=== PATIENT | female | born 1960 | race Two or more races ===

== ENCOUNTER 2021-03-02 09:30 | Inpatient (IN) | payer OTHER ==
[~2021-03-02] VITALS: Ht 170.2 cm; Wt 152.9 kg
[2021-03-05] MEDS ORDERED: MEGESTROL ACETA40 MG (08:56)
[2021-03-05] MEDS ORDERED: CLONAZEPAM0.5 MG (08:56)
[2021-03-05] MEDS ORDERED: SERTRALINE HCL50 MG (08:57)
== END 2021-03-05 11:12 | disposition home or self-care (01) | DRG 743 ==
LOC: OB/GYN 03-04 06:28 → O/R 03-04 06:28 → SURH 03-04 09:30 → OB/GYN 03-04 11:28
PROVIDERS: ADMIT Obstetrics & Gynecology Gynecologic Oncology; ATTEND Obstetrics & Gynecology Gynecologic Oncology
PROC: 0UT24ZZ Resection of Bilateral Ovaries, Percutaneous Endoscopic Approach (ICD-10-PCS; 2021-03-04)
PROC: 0UT74ZZ Resection of Bilateral Fallopian Tubes, Percutaneous Endoscopic Approach (ICD-10-PCS; 2021-03-04)
PROC: 07BC4ZZ Excision of Pelvis Lymphatic, Percutaneous Endoscopic Approach (ICD-10-PCS; 2021-03-04)
PROC: 0UT94ZZ Resection of Uterus, Percutaneous Endoscopic Approach (ICD-10-PCS; principal; 2021-03-04 10:00)
DX: N80.0 Endometriosis of uterus (principal); N72 Inflammatory disease of cervix uteri; D25.1 Intramural leiomyoma of uterus; N83.312 Acquired atrophy of left ovary; N83.8 Other noninflammatory disorders of ovary, fallopian tube and broad ligament; E66.01 Morbid (severe) obesity due to excess calories; G47.33 Obstructive sleep apnea (adult) (pediatric)